=== PATIENT | female | born 1965 | race Caucasian/White ===

== ENCOUNTER 2016-09-12 20:53 | Emergency (ER) | payer MEDICAID, OTHER ==
[~2016-09-12] VITALS: Ht 154.9 cm; Wt 77.0 kg
[2016-09-12 21:08] VITALS: Ht 154.9 cm; Wt 77.0 kg
[2016-09-12 23:12] LABS: BASOPHILS % 0.3 % (0.0-2.0); EOSINOPHILS # 0.2 10^3/ul (0.0-0.5); EOSINOPHILS % 2.9 % (0.0-7.0); HEMATOCRIT 41.5 % (37.0-47.0); HEMOGLOBIN 13.9 g/dl (12.0-16.0); LYMPHOCYTES # 2.5 10^3/ul (0.8-2.9); LYMPHOCYTES % 34.1 % (15.0-51.0); MEAN CORPUSCULAR HEMOGLOBIN 29.3 pg (29.0-33.0); MEAN CORPUSCULAR HGB CONC 33.6 g/dl (32.0-37.0); MEAN CORPUSCULAR VOLUME 87.4 fl (82.0-101.0); MEAN PLATELET VOLUME 8.4 fl (7.4-10.4); MONOCYTE # 0.5 10^3/ul (0.3-0.9); MONOCYTES % 6.3 % (0.0-11.0); NEUTROPHIL # 4.1 10^3/ul (1.6-7.5); NEUTROPHILS % 56.4 % (39.0-77.0); PLATELET COUNT 284 10^3/UL (140-440); RED BLOOD COUNT 4.75 10^6/ul (4.20-5.40); RED CELL DISTRIBUTION WIDTH 14.2 % (11.5-14.5); UNCORRECTED WBC 7.3 10^3/ul (4.8-10.8); WHITE BLOOD COUNT 7.3 10^3/ul (4.8-10.8)
[2016-09-12 23:13] LABS: CONDITION 1
--- NOTE | 2016-09-12 23:24 | ERA ---
ER Documentation Chief Complaint Date/Time DATE: 09/12/16 TIME: 23:22 Chief Complaint dizziness, syncopal episode 1 hour ago, c/o pain right hand/shoulder HPI The patient is a 51-year-old female, resenting to the ER because of fainting about an hour prior to arrival. The daughter heard a loud noise and went to the kitchen. She found her mother on the floor. The patient did not remember how it happened. She fell on the right side and complains of right shoulder and right wrist and right hand pain. She denies headache, facial pain, neck pain, chest pain, dyspnea, abdominal pain, vomiting, dysuria, diarrhea, tongue bite, fecal or urinary incontinence. She does not smoke does not drink Past medical history: Dyslipidemia, hypertension. She however does not take medication for a year Past surgical history: Appendectomy, history of peritonitis due to ruptured appendicitis, one ROS All systems reviewed and are negative except as per history of present illness. Allergies Allergies: Coded Allergies: acetaminophen (Verified Allergy, Mild, vomiting, 09/12/16) hydrocodone (Verified Allergy, Mild, vomiting, 09/12/16) PMhx/Soc Anesthesia Reaction: No Hx Neurological Disorder: No Hx Respiratory Disorders: No Hx Psychiatric Problems: No Hx Alcohol Use: No Hx Substance Use: No Hx Tobacco Use: No Smoking Status: Never smoker Physical Exam Vitals Vital Signs Date Time Temp Pulse Resp B/P Pulse Ox O2 Delivery O2 Flow Rate FiO2 09/13/16 00:00 80 18 144/97 97 Room Air 09/12/16 23:15 82 18 159/94 100 Room Air 09/12/16 21:08 98.4 86 20 166/95 98 Physical Exam Const: No acute distress. Head: Atraumatic. Eyes: Normal Conjunctiva. ENT: Normal External Ears, Nose and Mouth. Neck: Full range of motion. No meningismus. Resp: Clear to auscultation bilaterally. Cardio: Regular rate and rhythm, no murmurs. Abd: Soft, non distended, normal bowel sounds, non tender. Skin: No petechiae or rashes. Back: No midline or flank tenderness. Ext: No cyanosis, or edema. Neur: Awake and alert. No focal deficit Psych: Normal Mood and Affect. Result Diagram: 09/12/16224709/12/162247 Results 24 hrs Laboratory Tests Test 09/12/16 22:48 09/12/16 23:06 09/13/16 00:00 Anion Gap 16 Basophils # 0.010^3/ul Basophils % 0.3% Blood Urea Nitrogen 14mg/dl Calcium Level 9.4mg/dl Carbon Dioxide Level 29mmol/L Chloride Level 100mmol/L Creatinine 0.68mg/dl Eosinophils # 0.210^3/ul Eosinophils % 2.9% Glucose Level 108mg/dl Hematocrit 41.5% Hemoglobin 13.9g/dl Lymphocytes # 2.510^3/ul Lymphocytes % 34.1% Mean Corpuscular Hemoglobin 29.3pg Mean Corpuscular Hemoglobin Concent 33.6g/dl Mean Corpuscular Volume 87.4fl Mean Platelet Volume 8.4fl Monocytes # 0.510^3/ul Monocytes % 6.3% Neutrophils # 4.110^3/ul Neutrophils % 56.4% Nucleated Red Blood Cells # 0.010^3/ul Nucleated Red Blood Cells % 0.0/100WBC Platelet Count 22880^3/UL Potassium Level 3.3mmol/L Red Blood Count 4.7510^6/ul Red Cell Distribution Width 14.2% Sodium Level 142mmol/L Troponin I < 0.012ng/ml White Blood Count 7.310^3/ul Urine Bilirubin NEGATIVE Urine Clarity CLEAR Urine Color LT. YELLOW Urine Glucose NEGATIVE% Urine Hemoglobin NEGATIVE Urine Ketones NEGATIVE Urine Leukocyte Esterase 1+ Urine Microscopic RBC 0-2/HPF Urine Microscopic WBC 5-10/HPF Urine Nitrite NEGATIVE Urine Specific Loa 1.015 Urine Squamous Epithelial Cells MODERATE Urine Total Protein NEGATIVE Urine Urobilinogen 0.2 E.U./dL Urine pH 7.5 Bedside Glucose 108mg/dL Current Medications Medications (Trade) Dose Ordered Sig/Kendall Route PRN Reason Start Time Stop Time Status Last Admin Dose Admin Ceftriaxone Sodium (Rocephin) 50 ml @ 100 mls/hr ONCE ONCE IVPB 09/13/16 00:30 09/13/16 00:59 DC 09/13/16 00:30 Potassium Chloride (Klor-Con 20) 40 meq ONCE ONCE PO 09/13/16 00:56 09/13/16 00:57 DC 09/13/16 01:08 Procedures/[place] [address] Radiology Main Line: [phone] DIAGNOSTIC IMAGING REPORT Patient: TONYA WALTON : 1965 Age: 51 Sex: F MR #: [id number] DOS: 09/12/165 Ordering MD: Tabitha Schultz PA-C Location: E/R Room/Bed: PROCEDURE: XR Wrist. CLINICAL INDICATION: Injury. Possible fracture. Pain following a fall TECHNIQUE: AP, lateral and oblique views of the left wrist were performed. COMPARISON: No prior studies are available for comparison. FINDINGS: No evidence of fracture, dislocation, or subluxation is seen. The bones appear well mineralized. The joint spaces are well preserved. Mild diffuse soft tissue swelling is present. RPTAT:HJJR IMPRESSION: Diffuse soft tissue swelling without acute post traumatic abnormality of the right wrist. Ramin Singh Physician Date Time Electronically viewed and signed by Ramin Singh Physician on 09/13/2016 00:02 JR/ CC: Tabitha Schultz PA-C [place] [address] Radiology Main Line: [phone] DIAGNOSTIC IMAGING REPORT Patient: TONYA WALTON : 1965 Age: 51 Sex: F MR #: [id number] DOS: 09/12/16 2245 Ordering MD: Tabitha Schultz PA-C Location: E/R Room/Bed: AMENDMENT: 09/13/2016 12:35:04 AM Sam Singh D.O Patient Name: ISABELLE CASTANEDA Report Date: 12-Sep-2016 23:59.00 Patient Date: 1965 Report Status: S Accession No.: [id number] Reason for study: #reason_for_study# [place] [address] Radiology Main Line: [phone] DIAGNOSTIC IMAGING REPORT Patient: TONYA WALTON : 1965 Age: 51 Sex: F MR #: [id number] DOS: 09/12/162244 Ordering MD: Tabitha Schultz PA-C Location: E/R Room/Bed: PROCEDURE: XR right shoulder. CLINICAL INDICATION: Fall with right shoulder pain. TECHNIQUE: 2 views of the right shoulder were performed. COMPARISON: None. FINDINGS: There is normal osseous mineralization and alignment. No acute fracture or osseous lesion is identified. There are normal joints without evidence of arthritis or dislocation. Calcific tendinosis of the insertional supraspinatus versus infraspinatus. IMPRESSION: Calcific tendinosis of the insertional superior rotator cuff, and otherwise, no acute fracture. Physician Pura Date Time Electronically viewed and signed by Physician Pura on 09/12/2016 23:59 RS/ CC: Tabitha Schultz PA-C Radiologist : Ramin Singh Physician Date Time Electronically viewed and signed by Physician Kristin on 09/13/2016 00:35 JR/ CC: Tabitha Schultz PA-C [place] [address] Radiology Main Line: [phone] DIAGNOSTIC IMAGING REPORT Patient: TONYA WALTON : 1965 Age: 51 Sex: F MR #: [id number] DOS: 09/12/165 Ordering MD: Tabitha Schultz PA-C Location: E/R Room/Bed: PROCEDURE: CT brain without contrast CLINICAL INDICATION: Syncope TECHNIQUE: A CT of the brain was performed utilizing axial sections from the skull base through the vertex without contrast. Sagittal and coronal images were also reformatted. The exam CTDIvol = 50.91 mGy and DLP = 643.64 mGy-cm. COMPARISON: None available FINDINGS: No acute intracranial hemorrhage is identified. There is no mass effect or midline shift. No extra-axial fluid collection is seen. The ventricles and sulci are within normal limits for size and configuration. The density of the brain is within normal limits. Barfield-white differentiation is preserved. The osseous structures are unremarkable. The mastoid air cells and visualized paranasal sinuses are clear. RPTAT:HJJR IMPRESSION: Unremarkable noncontrast CT of the brain. Physician Kristin Date Time Electronically viewed and signed by Ramin Singh Physician on 09/12/2016 23:26 JR/ CC: Tabitha Schultz PA-C [place] [address] Radiology Main Line: [phone] DIAGNOSTIC IMAGING REPORT Patient: TONYA WALTON : 1965 Age: 51 Sex: F MR #: [id number] DOS: 09/12/16 [facility] Ordering MD: ANYA STOVER MD Location: E/R Room/Bed: PROCEDURE: XR Hand. CLINICAL INDICATION: Pain in the right hand. TECHNIQUE: AP, oblique and lateral views of the right hand were obtained. COMPARISON: No prior studies are available for comparison. FINDINGS: Reference marker is directed towards the right thumb. There is no evident underlying radiographic abnormality. There is normal mineralization. No acute fracture or dislocation is seen. There are no significant degenerative changes. There is no significant soft tissue swelling. IMPRESSION: No acute process in the right hand. RPTAT: UU Physician Pura Date Time Electronically viewed and signed by Marcia Damon Physician on 09/13/2016 00:00 RS/ CC: ANYA STOVER MD MEDICAL MAKING DECISION: The patient is a 51-year-old female, presenting to the ER because of acute syncope of unclear etiology, acute cystitis, acute hypokalemia, acute right hand, right wrist, right shoulder pain. She was treated with Rocephin 1 g IV for acute cystitis and potassium chloride 40 mEq p.o. for low potassium. The differential diagnoses considered include but are not limited to bradyarrhythmia, tachyarrhythmias, aortic outflow obstruction, neurogenic including subarachnoid hemorrhage, orthostatic hypotension and all of its causes, hypoglycemia, dysautonomia, medications. Departure Diagnosis: Primary Impression: Syncope Additional Impressions: UTI (urinary tract infection) Hypokalemia Right shoulder pain Right wrist pain Right hand pain Condition: Stable Comments I discussed the findings with the patient. I discussed the patient with his physician Dr. Acevedo at 1 AM who was made aware of the lab, the treatment, the patient condition. He is coming to the ER to evaluate the patient ANYA STOVER MD Sep 12, 2016 23:24
[2016-09-12 23:25] LABS: ADD UMIC YES; URINE BILIRUBIN (Dip) NEGATIVE (NEGATIVE); URINE BLOOD (Dip) NEGATIVE (NEGATIVE); URINE COLOR LT. YELLOW (YELLOW); URINE GLUCOSE (Dip) NEGATIVE (NEGATIVE); URINE KETONES (Dip) NEGATIVE (NEGATIVE); URINE LEUKOCYTE ESTERASE (Dip) 1+ (NEGATIVE); URINE NITRITE (Dip) NEGATIVE (NEGATIVE); URINE TOTAL PROTEIN (Dip) NEGATIVE (NEGATIVE); URINE UROBILINOGEN (Dip) 0.2 E.U./dL (0.1-1.0)
--- NOTE | 2016-09-12 23:26 | RADRPT ---
PROCEDURE: CT brain without contrast CLINICAL INDICATION: Syncope TECHNIQUE: A CT of the brain was performed utilizing axial sections from the skull base through th e vertex without contrast. Sagittal and coronal images were also reformatted. The exam CTDIvol = 50. 91 mGy and DLP = 643.64 mGy-cm. COMPARISON: None available FINDINGS: No acute intracranial hemorrhage is identified. There is no mass effect or midline shift. No extra -axial fluid collection is seen. The ventricles and sulci are within normal limits for size and con figuration. The density of the brain is within normal limits. Barfield-white differentiation is preser garcia. The osseous structures are unremarkable. The mastoid air cells and visualized paranasal sinuses are clear. RPTAT:HJJR IMPRESSION: Unremarkable noncontrast CT of the brain. Physician Kristin Date Time Electronically viewed and signed by Physician Kristin on 09/12/2016 23:26 /
[2016-09-12 23:59] LABS: URINE RBCS 0-2 /HPF (0)
--- NOTE | 2016-09-12 23:59 | RADRPT ---
AMENDMENT: 09/13/2016 12:35:04 AM Sam Singh D.O Patient Name: ISABELLE CASTANEDA Report Date: 12-Sep-2016 23:59.00 Patient Date: 1965 Report Status: S Accession No.: [id number] Reason for study: #reason_for_study# [place] [address] Radiology Main Line: [phone] DIAGNOSTIC IMAGING REPORT Patient: TONYA WALTON : 1965 Age: 51 Sex: F MR #: [id number] DOS: 09/12/16 2245 Ordering MD: Tabitha Schultz PA-C Location: E/R Room/Bed: PROCEDURE: XR right shoulder. CLINICAL INDICATION: Fall with right shoulder pain. TECHNIQUE: 2 views of the right shoulder were performed. COMPARISON: None. FINDINGS: There is normal osseous mineralization and alignment. No acute fracture or osseous lesion is identified. There are normal joints without evidence of arthritis or dislocation. Calcific tendinosis of the insertional supraspinatus versus infraspinatus. IMPRESSION: Calcific tendinosis of the insertional superior rotator cuff, and otherwise, no acute fracture. Physician Pura Date Time Electronically viewed and signed by Physician Pura on 09/12/2016 23:59 RS/ CC: Tabitha Schultz PA-C Radiologist : Physician Kristin Date Time Electronically viewed and signed by Physician Kristin on 09/13/2016 00:35 JR/
[2016-09-13] LABS: SQUAMOUS EPITHELIAL CELL,UR MODERATE
--- NOTE | 2016-09-13 | RADRPT ---
PROCEDURE: XR Hand. CLINICAL INDICATION: Pain in the right hand. TECHNIQUE: AP, oblique and lateral views of the right hand were obtained. COMPARISON: No prior studies are available for comparison. FINDINGS: Reference marker is directed towards the right thumb. There is no evident underlying radiographic a bnormality. There is normal mineralization. No acute fracture or dislocation is seen. There are no significant degenerative changes. There is no significant soft tissue swelling. IMPRESSION: No acute process in the right hand. RPTAT: UU Physician Pura Date Time Electronically viewed and signed by Physician Pura on 09/13/2016 00:00 RS/
--- NOTE | 2016-09-13 00:02 | RADRPT ---
PROCEDURE: XR Wrist. CLINICAL INDICATION: Injury. Possible fracture. Pain following a fall TECHNIQUE: AP, lateral and oblique views of the left wrist were performed. COMPARISON: No prior studies are available for comparison. FINDINGS: No evidence of fracture, dislocation, or subluxation is seen. The bones appear well mineralized. The joint spaces are well preserved. Mild diffuse soft tissue swelling is present. RPTAT:HJJR IMPRESSION: Diffuse soft tissue swelling without acute post traumatic abnormality of the right wrist. Physician Kristin Date Time Electronically viewed and signed by Physician Kristin on 09/13/2016 00:02 /
[2016-09-13 00:30] LABS: CHLORIDE 100 mmol/L (97-110); SODIUM 142 mmol/L (135-144)
[2016-09-13] MEDS ORDERED: CEFTRIAXONE 1 GM/50 ML (PMX) 50 ML IVPB ONE (00:30)
[2016-09-13 00:31] LABS: POTASSIUM 3.3 mmol/L (3.5-5.1)
[2016-09-13 00:33] LABS: CREATININE 0.68 mg/dl (0.44-1.00)
[2016-09-13 00:34] LABS: ANION GAP 16 (8-16); BLOOD UREA NITROGEN 14 mg/dl (7-20); CALCIUM 9.4 mg/dl (8.4-10.2); CARBON DIOXIDE 29 mmol/L (21-31); GLUCOSE 108 mg/dl (70-220)
[2016-09-13 00:49] LABS: TROPONIN-I < 0.012 ng/ml (0.00-0.12)
[2016-09-13] MEDS ORDERED: POTASSIUM CHLORIDE (SR) 20 MEQ TAB PO ONE (00:56)
--- NOTE | 2016-09-13 02:15 | QN ---
Documentation Comment consult dict a/p 1. syncope, most likely related to orthostatic vs b9 positional vertigo. patietn offered inpatient admit for further testing, but prefers for discharge to home, which i believe is a reasonable choice. DAISY MUÑOZ MD Sep 13, 2016 02:15
--- NOTE | 2016-09-13 02:22 | PDOCDIS ---
Discharge Instructions CONDITION Patient Condition: Good HOME CARE INSTRUCTIONS: Diet Instructions: Regular ACTIVITY: Activity Restrictions: No Restrictions FOLLOW UP/APPOINTMENTS Appointments follow up with your primary care doctor regarding borderline high blood pressure use your preferred pain medication (tylenbol, motrin, aspirin) for R thumb pain DAISY MUÑOZ MD Sep 13, 2016 02:22
[2016-09-13 03:00] VITALS: BP 144/96; PULSE 82; RESP 18
[2016-09-13] MEDS ORDERED: IBUPROFEN 600 MG TAB PO ONE (03:30)
--- NOTE | 2016-09-13 03:44 | CONS ---
DATE OF ADMISSION: 09/12/2016 DATE OF CONSULTATION: 09/13/2016 MEDICINE CONSULTATION CHIEF COMPLAINT: Fall. HISTORY OF PRESENT ILLNESS: The patient presents to the emergency room at [facility] after sustaining a fall this evening, according to the patient and her daughter. [facility] this evening at approximately 8:30. She had eaten dinner and was watching television when she began to feel unwell which she qualified as sort of nervous like she needed to get somethin g to eat. She stood up and became more dizzy, walked into the next room to get a piece of fruit, an d by the time she turned around to come back to the living room again, she fell to the ground uncons cious. Daughter heard the fall, and by the time of daughter's arrival from her bedroom to the dinin g room, the patient was awake and lucid, answering questions appropriately, complaining of some pain on the right hand side, especially of the right thumb. There was no associated chest pain, pressur e, or discomfort. No associated shortness of breath. There has been no recent illness. The patien t did state that upon standing she felt somewhat worse and that this got progressively worse as she was walking along. PAST MEDICAL HISTORY: Significant for high cholesterol and high blood pressure. MEDICATIONS AN OUTPATIENT: Nil. ALLERGIES: INCLUDE ONLY TYLENOL AND HYDROCODONE LISTED. 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 She denies tobacco, alcohol, or illicit drug use. FAMILY HISTORY: Noncontributory. Specifically negative for diabetes. REVIEW OF SYSTEMS: Five systems were reviewed and found not to be revealing. PHYSICAL EXAMINATION: VITAL SIGNS: Blood pressure is 136/91, pulse rate is 78, respirations 20, temperature is 98.4. GENERAL: Pleasant woman in no acute distress, alert and oriented x3. HEENT: Normocephalic, atraumatic without evidence of scleral icterus or perioral cyanosis. Mucous membranes are moist. NECK: Soft and supple without masses. No evidence of jugular venous distention or carotid bruits. CHEST: Clear to auscultation and percussion bilaterally. HEART: Regular rate and rhythm, S1 and S2, no added sounds. ABDOMEN: Soft, nontender, nondistended without palpable hepatosplenomegaly. EXTREMITIES: Without clubbing, cyanosis, or edema. The patient does complain of pain at the right thumb. She had limited range of motion here with some mild swelling centered especially on the inte rphalangeal joint but no point tenderness. SKIN: Without rashes. NEUROLOGIC: Cranial nerves III through XII are intact. Tone, power, and coordination intact x4 pickett bs. The patient is able to stand and walk without difficulty at this time. LABORATORY DATA: Reveals hemoglobin 13.9 g/dL, white count of 7,300, platelets of 284,000. Sodium 142, potassium 3.3, chloride 100, bicarbonate 29, BUN 14, creatinine 0.68, glucose 108. Troponin is negative. Urinalysis shows 1+ leukocyte esterase and 5 to 10 white blood cells. RADIOGRAPHIC DATA: CT scan of brain is negative. X-rays of the right shoulder, wrist, and hand are negative. ASSESSMENT AND PLAN: 1. Syncopal episode. This is most likely orthostatic hypotension based on the historical descripti on of the events. This has been explained to the patient and her daughter. They are offered furthe r testing on an inpatient basis, though they prefer to be discharged to home based on my explanation . I feel this is a reasonable thing and will accommodate this request. 2. Right thumb pain. Continue with nonsteroidal anti-inflammatories and expect resolution of soft tissue injury over 1 to 2 weeks. 3. Follow up with primary care regarding borderline hypertension. 4. Disposition: Discharged to home. Dictated By: DAISY MUÑOZ MD RER/NTS Conf#: [id number] DID#: [id number]
== END 2016-09-13 03:45 | disposition home or self-care (01) ==
LOC: FTE 20:53 → E/R 09-13 03:45
DX: R55 Syncope and collapse (principal); N39.0 Urinary tract infection, site not specified; E87.6 Hypokalemia; M25.511 Pain in right shoulder; M25.531 Pain in right wrist; M79.641 Pain in right hand; I10 Essential (primary) hypertension
CPT/HCPCS: 70450; 73030; 73110; 73130; 80048; 81001; 82962; 84484; 85025; 87086; 93005; J0696; Z7610; 36415; 81003; 96365